=== PATIENT | female | born 1950 | race Caucasian/White ===

== ENCOUNTER 2023-09-01 12:28 | Inpatient (IN) | payer OTHER ==
[~2023-09-01] VITALS: Ht 157.5 cm; Wt 73.9 kg
[2023-09-01 12:41] VITALS: BP_SYST 143; PULSE 87; RESP 20; TEMP 98.1; O2SAT 95
[2023-09-01 13:19] LABS: BASOPHILS % (AUTO) 0.3 % (0.0-2.0); EOSINOPHILS % (AUTO) 0.4 % (0.0-4.0); HEMATOCRIT 32.8 % (36-48); HEMOGLOBIN 11.1 g/dL (12.0-16.0); LYMPHOCYTES # (AUTO) 0.4 K/uL (1.0-5.5); LYMPHOCYTES % (AUTO) 4.5 % (20.5-51.5); MEAN CORPUSCULAR HEMOGLOBIN 28 pg (27-31); MEAN CORPUSCULAR HGB CONC 34 % (32-36); MEAN CORPUSCULAR VOLUME 83 fL (79.0-98.0); MONOCYTES # (AUTO) 0.5 K/uL (0.0-1.0); MONOCYTES % (AUTO) 5.3 % (1.7-9.3); NEUTROPHILS # (AUTO) 8.5 K/uL (1.8-7.7); NEUTROPHILS % (AUTO) 89.5 % (40.0-70.0); PLATELET COUNT (AUTO) 145 K/uL (130-430); RED BLOOD CELL COUNT(AUTO) 3.94 MIL/uL (4.2-6.2); WHITE BLOOD COUNT (AUTO) 9.5 K/uL (4.8-10.8)
[2023-09-01 13:45] LABS: ANION GAP 12 (5-15); CALCIUM 9.1 mg/dL (8.4-11.0); CARBON DIOXIDE 24 mmol/L (23-29); CHLORIDE 100 mmol/L (98-107); CREATININE 1.16 mg/dL (0.55-1.30); GLUCOSE 167 mg/dL (74-106); POTASSIUM 3.8 mmol/L (3.5-5.1); SODIUM SERUM 136 mmol/L (136-145); UREA NITROGEN, BLOOD 23 mg/dL (8-21)
[2023-09-01 13:48] LABS: PROTHROMBIN TIME 10.1 SECS (9.5-12.5)
[2023-09-01 13:53] LABS: BILIRUBIN,URINE 1+ (NEGATIVE); BLOOD, URINE 3+ (NEGATIVE); CLARITY/URINE SL CLOUDY (CLEAR); COLOR,URINE YELLOW (YELLOW); GLUCOSE,URINE NEGATIVE (NEGATIVE); KETONES,URINE TRACE (NEGATIVE); LEUKOCYTE ESTERASE ,URINE 2+ (NEGATIVE); NITRITE, URINE NEGATIVE (NEGATIVE); PROTEIN URINE 2+ (NEGATIVE); UROBILINOGEN,URINE 0.2 (0.2-1.0)
[2023-09-01 14:11] LABS: BACTERIA,URINE FEW /HPF (None Seen); MUCUS,URINE 1+ /LPF (None Seen); RBC,URINE 20-50 /HPF (0-3); WBC,URINE 20-50 /HPF (0-3)
[2023-09-01 14:18] LABS: ALANINE AMINOTRANSFERASE 18 U/L (12-78); ALBUMIN 2.9 g/dL (3.4-4.8); AMYLASE 26 U/L (0-100); ASPARTATE AMINOTRANSFERASE 15 U/L (10-37); BILIRUBIN,DIRECT 0.2 mg/dL (0.0-0.3); LIPASE 29 U/L (16-77); TOTAL BILIRUBIN 0.5 mg/dL (0.0-1.0); TOTAL PROTEIN, SERUM 7.3 g/dL (6.4-8.3)
[2023-09-01] MEDS ORDERED: KETOROLAC TROMETHAMINE 30 MG VIAL IVP ONE (15:00)
[2023-09-01] MEDS ORDERED: NACL 0.9% 1,000 ML IV ONE (15:00)
[2023-09-01] MEDS ORDERED: LOSA50TA28 PO (15:29)
[2023-09-01] MEDS ORDERED: VENL150C53 PO (15:29)
[2023-09-01] MEDS ORDERED: METF1000 PO (15:29)
[2023-09-01] MEDS ORDERED: FENO200C25 PO (15:29)
[2023-09-01] MEDS ORDERED: LEVO150T PO (15:29)
[2023-09-01] MEDS ORDERED: cefTRIAXone 1 GM in D5W 50 ML IV ONE (15:30)
[2023-09-01] MEDS ORDERED: INSULIN REGULAR, HUMAN 100 UNITS/ML, 3 ML VIAL (humuLIN R) SUBCUT PRN (15:30)
[2023-09-01] MEDS ORDERED: cefTRIAXone 1 GM VIAL ONE (15:47)
[2023-09-01] MEDS ORDERED: 0.45% NACL 1,000 ML IV SCH (16:00)
[2023-09-01] MEDS ORDERED: ACETAMINOPHEN 325 MG TABLET PO PRN ×2 (17:30→17:45)
[2023-09-01] MEDS ORDERED: MORPHINE 4 MG INJ. 4 MG/ML VIAL IVP PRN (17:30)
[2023-09-01] MEDS ORDERED: NALOXONE HCL 0.4 MG/ML AMP (NARCAN) IVP PRN ×2 (17:30)
[2023-09-01] MEDS ORDERED: ONDANSETRON HCL 4 MG/2 ML VIAL IVP PRN (17:30)
[2023-09-01] MEDS: metFORMIN HCL 500 MG TABLET PO SCH (18:00)
[2023-09-01] MEDS ORDERED: LOSARTAN POTASSIUM 50 MG TABLET (COZAAR) PO ONE (18:00)
[2023-09-01] MEDS: NACL 0.9% 1,000 ML IV SCH (18:59)
[2023-09-01 19:00] VITALS: BP_SYST 120; PULSE 75; RESP 18; TEMP 99.1; O2SAT 96
[2023-09-01 21:35] VITALS: O2SAT 96
[2023-09-01 21:50] VITALS: BP_SYST 124; PULSE 76; RESP 18; TEMP 97.3
[2023-09-01] MEDS: HYDROcodone/ACETAMIN 5-325 MG TAB (NORCO/ VICODIN) PO PRN (21:54)
[2023-09-02 00:20] VITALS: BP_SYST 138; PULSE 70; RESP 16; TEMP 97.2; O2SAT 97
[2023-09-02] MEDS: NACL 0.9% 1,000 ML IV SCH ×3 (04:00→18:45)
[2023-09-02 04:54] LABS: BASOPHILS % (AUTO) 0.4 % (0.0-2.0); EOSINOPHILS # (AUTO) 0.1 K/uL (0.0-0.4); EOSINOPHILS % (AUTO) 1.1 % (0.0-4.0); HEMATOCRIT 29.6 % (36-48); HEMOGLOBIN 9.9 g/dL (12.0-16.0); LYMPHOCYTES # (AUTO) 0.6 K/uL (1.0-5.5); LYMPHOCYTES % (AUTO) 6.8 % (20.5-51.5); MEAN CORPUSCULAR HEMOGLOBIN 28 pg (27-31); MEAN CORPUSCULAR HGB CONC 33 % (32-36); MEAN CORPUSCULAR VOLUME 84 fL (79.0-98.0); MONOCYTES # (AUTO) 0.7 K/uL (0.0-1.0); MONOCYTES % (AUTO) 8.1 % (1.7-9.3); NEUTROPHILS # (AUTO) 7.8 K/uL (1.8-7.7); NEUTROPHILS % (AUTO) 83.6 % (40.0-70.0); PLATELET COUNT (AUTO) 133 K/uL (130-430); RED BLOOD CELL COUNT(AUTO) 3.53 MIL/uL (4.2-6.2); WHITE BLOOD COUNT (AUTO) 9.3 K/uL (4.8-10.8)
[2023-09-02 05:21] LABS: ALANINE AMINOTRANSFERASE 11 U/L (12-78); ALBUMIN 2.3 g/dL (3.4-4.8); ANION GAP 13 (5-15); ASPARTATE AMINOTRANSFERASE 13 U/L (10-37); CALCIUM 8.2 mg/dL (8.4-11.0); CARBON DIOXIDE 21 mmol/L (23-29); CHLORIDE 105 mmol/L (98-107); CREATININE 1.14 mg/dL (0.55-1.30); GLUCOSE 154 mg/dL (74-106); POTASSIUM 3.4 mmol/L (3.5-5.1); SODIUM SERUM 139 mmol/L (136-145); TOTAL BILIRUBIN 0.3 mg/dL (0.0-1.0); TOTAL PROTEIN, SERUM 6.3 g/dL (6.4-8.3); UREA NITROGEN, BLOOD 23 mg/dL (8-21)
[2023-09-02 07:42] VITALS: BP_SYST 128; PULSE 73; RESP 16; TEMP 97.4; O2SAT 92
[2023-09-02] MEDS: metFORMIN HCL 500 MG TABLET PO SCH ×2 (08:00→18:00)
[2023-09-02] MEDS: Effexor XR 37.5 MG PO SCH (09:00)
[2023-09-02] MEDS: FENOFIBRATE 160 MG TABLET PO SCH (09:00)
[2023-09-02] MEDS: LOSARTAN POTASSIUM 50 MG TABLET (COZAAR) PO SCH (09:00)
[2023-09-02] MEDS: HYDROcodone/ACETAMIN 5-325 MG TAB (NORCO/ VICODIN) PO PRN (09:01)
[2023-09-02] MEDS: HYDROcodone/ACETAMIN 10-325 MG TAB PO PRN ×3 (13:28→23:16)
[2023-09-02 17:05] VITALS: BP_SYST 124; PULSE 69; RESP 16; TEMP 96.9; O2SAT 92
[2023-09-02] MEDS: cefTRIAXone 1 GM in D5W 50 ML IV SCH (18:47)
[2023-09-03] MEDS: HYDROcodone/ACETAMIN 10-325 MG TAB PO PRN (04:22)
[2023-09-03 05:44] LABS: BASOPHILS # (AUTO) 0.1 K/uL (0.0-0.2); BASOPHILS % (AUTO) 0.6 % (0.0-2.0); EOSINOPHILS # (AUTO) 0.2 K/uL (0.0-0.4); EOSINOPHILS % (AUTO) 1.9 % (0.0-4.0); HEMATOCRIT 29.1 % (36-48); HEMOGLOBIN 9.6 g/dL (12.0-16.0); LYMPHOCYTES # (AUTO) 0.8 K/uL (1.0-5.5); LYMPHOCYTES % (AUTO) 9.2 % (20.5-51.5); MEAN CORPUSCULAR HEMOGLOBIN 28 pg (27-31); MEAN CORPUSCULAR HGB CONC 33 % (32-36); MEAN CORPUSCULAR VOLUME 84 fL (79.0-98.0); MONOCYTES # (AUTO) 0.7 K/uL (0.0-1.0); MONOCYTES % (AUTO) 8.6 % (1.7-9.3); NEUTROPHILS # (AUTO) 6.9 K/uL (1.8-7.7); NEUTROPHILS % (AUTO) 79.7 % (40.0-70.0); PLATELET COUNT (AUTO) 148 K/uL (130-430); RED BLOOD CELL COUNT(AUTO) 3.47 MIL/uL (4.2-6.2); RED CELL DISTRIBUTION WIDTH 14.9 % (9.0-15.0); WHITE BLOOD COUNT (AUTO) 8.7 K/uL (4.8-10.8)
[2023-09-03 05:54] LABS: ALANINE AMINOTRANSFERASE 20 U/L (12-78); ALBUMIN 2.2 g/dL (3.4-4.8); ANION GAP 13 (5-15); ASPARTATE AMINOTRANSFERASE 20 U/L (10-37); CALCIUM 8.1 mg/dL (8.4-11.0); CARBON DIOXIDE 20 mmol/L (23-29); CHLORIDE 104 mmol/L (98-107); CREATININE 0.89 mg/dL (0.55-1.30); GLUCOSE 116 mg/dL (74-106); POTASSIUM 3.2 mmol/L (3.5-5.1); SODIUM SERUM 137 mmol/L (136-145); TOTAL BILIRUBIN 0.2 mg/dL (0.0-1.0); TOTAL PROTEIN, SERUM 6.3 g/dL (6.4-8.3); UREA NITROGEN, BLOOD 17 mg/dL (8-21)
[2023-09-03 08:41] VITALS: BP_SYST 118; PULSE 79; RESP 16; TEMP 97; O2SAT 93
[2023-09-03] MEDS: FENOFIBRATE 160 MG TABLET PO SCH (09:00)
[2023-09-03] MEDS: LOSARTAN POTASSIUM 50 MG TABLET (COZAAR) PO SCH (09:32)
[2023-09-03] MEDS: metFORMIN HCL 500 MG TABLET PO SCH ×2 (09:32→20:53)
[2023-09-03] MEDS: Effexor XR 37.5 MG PO SCH (09:32)
[2023-09-03] MEDS: NACL 0.9% 1,000 ML IV SCH ×2 (09:45→20:55)
[2023-09-03] MEDS ORDERED: POTASSIUM CHLORIDE 20 MEQ TABLET.ER PO ONE (10:00)
[2023-09-03] MEDS ORDERED: NALOXONE HCL 0.4 MG/ML AMP (NARCAN) IVP PRN (10:00)
[2023-09-03 12:00] VITALS: BP_SYST 131; PULSE 76; RESP 18; TEMP 98.2; O2SAT 96
[2023-09-03] MEDS ORDERED: FUROSEMIDE 20 MG/2 ML VIAL ONE (12:52)
[2023-09-03] MEDS ORDERED: FUROSEMIDE 20 MG/2 ML VIAL IVP ONE (13:00)
[2023-09-03] MEDS: MORPHINE 2 MG/ML INJ. SYRINGE IVP PRN ×2 (13:49→20:18)
[2023-09-03 16:00] VITALS: BP_SYST 128; PULSE 84; RESP 18; TEMP 97.9; O2SAT 98
[2023-09-03 20:00] VITALS: BP_SYST 134; PULSE 76; RESP 21; TEMP 99.2; O2SAT 94
[2023-09-03] MEDS: cefTRIAXone 1 GM in D5W 50 ML IV SCH (20:46)
[2023-09-03 22:58] VITALS: O2SAT 94
[2023-09-04] VITALS (7 sets, daily range): BP systolic 134–147; PULSE 75–78; RESP 15–21; TEMP 96–99.2; O2SAT 94–96
[2023-09-04] MEDS: MORPHINE 2 MG/ML INJ. SYRINGE IVP PRN ×4 (03:08→23:26)
[2023-09-04] MEDS: NACL 0.9% 1,000 ML IV SCH ×2 (05:59→18:29)
[2023-09-04 07:26] LABS: BASOPHILS # (AUTO) 0.1 K/uL (0.0-0.2); BASOPHILS % (AUTO) 0.5 % (0.0-2.0); EOSINOPHILS # (AUTO) 0.1 K/uL (0.0-0.4); EOSINOPHILS % (AUTO) 0.9 % (0.0-4.0); HEMATOCRIT 29.5 % (36-48); HEMOGLOBIN 9.8 g/dL (12.0-16.0); LYMPHOCYTES # (AUTO) 0.9 K/uL (1.0-5.5); LYMPHOCYTES % (AUTO) 7.6 % (20.5-51.5); MEAN CORPUSCULAR HEMOGLOBIN 28 pg (27-31); MEAN CORPUSCULAR HGB CONC 33 % (32-36); MEAN CORPUSCULAR VOLUME 83 fL (79.0-98.0); MONOCYTES # (AUTO) 0.9 K/uL (0.0-1.0); MONOCYTES % (AUTO) 8.1 % (1.7-9.3); NEUTROPHILS # (AUTO) 9.6 K/uL (1.8-7.7); NEUTROPHILS % (AUTO) 82.9 % (40.0-70.0); PLATELET COUNT (AUTO) 196 K/uL (130-430); RED BLOOD CELL COUNT(AUTO) 3.56 MIL/uL (4.2-6.2); RED CELL DISTRIBUTION WIDTH 14.8 % (9.0-15.0); WHITE BLOOD COUNT (AUTO) 11.6 K/uL (4.8-10.8)
[2023-09-04 07:47] LABS: ALANINE AMINOTRANSFERASE 16 U/L (12-78); ALBUMIN 2.1 g/dL (3.4-4.8); ANION GAP 15 (5-15); ASPARTATE AMINOTRANSFERASE 19 U/L (10-37); CALCIUM 8.4 mg/dL (8.4-11.0); CARBON DIOXIDE 19 mmol/L (23-29); CHLORIDE 105 mmol/L (98-107); CREATININE 0.86 mg/dL (0.55-1.30); GLUCOSE 106 mg/dL (74-106); POTASSIUM 3.5 mmol/L (3.5-5.1); SODIUM SERUM 139 mmol/L (136-145); TOTAL BILIRUBIN 0.3 mg/dL (0.0-1.0); TOTAL PROTEIN, SERUM 6.4 g/dL (6.4-8.3); UREA NITROGEN, BLOOD 13 mg/dL (8-21)
[2023-09-04] MEDS: metFORMIN HCL 500 MG TABLET PO SCH ×2 (08:00→18:27)
[2023-09-04] MEDS: FENOFIBRATE 160 MG TABLET PO SCH (09:00)
[2023-09-04] MEDS: LOSARTAN POTASSIUM 50 MG TABLET (COZAAR) PO SCH (09:33)
[2023-09-04] MEDS: Effexor XR 37.5 MG PO SCH ×2 (09:33→09:39)
[2023-09-04] MEDS ORDERED: HYDROcodone/ACETAMIN 5-325 MG TAB (NORCO/ VICODIN) PO PRN (17:15)
[2023-09-04] MEDS: HYDROcodone/ACETAMIN 7.5-325 MG TAB PO PRN (18:22)
[2023-09-04] MEDS: cefTRIAXone 2 GM in D5W 50 ML IV SCH (18:27)
[2023-09-05] VITALS (7 sets, daily range): BP systolic 128–139; PULSE 72–79; RESP 18–22; TEMP 96.2–97.9; O2SAT 93–97
[2023-09-05] MEDS: NACL 0.9% 1,000 ML IV SCH ×2 (01:45→18:32)
[2023-09-05] MEDS: HYDROcodone/ACETAMIN 7.5-325 MG TAB PO PRN ×4 (01:49→18:33)
[2023-09-05] MEDS: metFORMIN HCL 500 MG TABLET PO SCH ×2 (10:29→18:31)
[2023-09-05] MEDS: FENOFIBRATE 160 MG TABLET PO SCH (10:30)
[2023-09-05] MEDS: LOSARTAN POTASSIUM 50 MG TABLET (COZAAR) PO SCH (10:30)
[2023-09-05] MEDS: cefTRIAXone 2 GM in D5W 50 ML IV SCH (18:31)
[2023-09-06] MEDS: HYDROcodone/ACETAMIN 7.5-325 MG TAB PO PRN ×4 (01:01→22:12)
[2023-09-06 08:00] VITALS: BP_SYST 151; PULSE 72; RESP 18; TEMP 97; O2SAT 95
[2023-09-06 08:13] VITALS: O2SAT 95
[2023-09-06 08:21] LABS: BASOPHILS # (AUTO) 0.1 K/uL (0.0-0.2); BASOPHILS % (AUTO) 0.8 % (0.0-2.0); EOSINOPHILS # (AUTO) 0.1 K/uL (0.0-0.4); EOSINOPHILS % (AUTO) 1.2 % (0.0-4.0); HEMATOCRIT 31.4 % (36-48); HEMOGLOBIN 10.4 g/dL (12.0-16.0); LYMPHOCYTES % (AUTO) 8.3 % (20.5-51.5); MEAN CORPUSCULAR HEMOGLOBIN 27 pg (27-31); MEAN CORPUSCULAR HGB CONC 33 % (32-36); MEAN CORPUSCULAR VOLUME 83 fL (79.0-98.0); MONOCYTES # (AUTO) 0.6 K/uL (0.0-1.0); MONOCYTES % (AUTO) 5.1 % (1.7-9.3); NEUTROPHILS # (AUTO) 9.9 K/uL (1.8-7.7); NEUTROPHILS % (AUTO) 84.6 % (40.0-70.0); PLATELET COUNT (AUTO) 306 K/uL (130-430); RED CELL DISTRIBUTION WIDTH 14.9 % (9.0-15.0); WHITE BLOOD COUNT (AUTO) 11.7 K/uL (4.8-10.8)
[2023-09-06 08:47] LABS: ANION GAP 13 (5-15); ASPARTATE AMINOTRANSFERASE 14 U/L (10-37); CARBON DIOXIDE 22 mmol/L (23-29); CHLORIDE 104 mmol/L (98-107); CREATININE 0.75 mg/dL (0.55-1.30); GLUCOSE 87 mg/dL (74-106); POTASSIUM 3.6 mmol/L (3.5-5.1); SODIUM SERUM 139 mmol/L (136-145); TOTAL BILIRUBIN 0.2 mg/dL (0.0-1.0); UREA NITROGEN, BLOOD 9 mg/dL (8-21)
[2023-09-06 08:48] LABS: ALANINE AMINOTRANSFERASE 16 U/L (12-78); ALBUMIN 2.3 g/dL (3.4-4.8); TOTAL PROTEIN, SERUM 6.6 g/dL (6.4-8.3)
[2023-09-06] MEDS: FENOFIBRATE 160 MG TABLET PO SCH (09:40)
[2023-09-06] MEDS: LOSARTAN POTASSIUM 50 MG TABLET (COZAAR) PO SCH (09:41)
[2023-09-06] MEDS: metFORMIN HCL 500 MG TABLET PO SCH ×2 (09:41→17:25)
[2023-09-06] MEDS: Effexor XR 37.5 MG PO SCH (09:43)
[2023-09-06 12:00] VITALS: BP_SYST 144; PULSE 79; RESP 17; TEMP 98.1; O2SAT 95
[2023-09-06 16:00] VITALS: BP_SYST 139; PULSE 75; RESP 18; TEMP 98.2; O2SAT 96
[2023-09-06] MEDS: NACL 0.9% 1,000 ML IV SCH (17:27)
[2023-09-06] MEDS: cefTRIAXone 2 GM in D5W 50 ML IV SCH (17:42)
[2023-09-06 20:00] VITALS: BP_SYST 146; PULSE 71; RESP 18; TEMP 97.8; O2SAT 96
[2023-09-07] VITALS: BP_SYST 152; PULSE 68; RESP 18; TEMP 97.9; O2SAT 96
[2023-09-07 06:20] LABS: BASOPHILS # (AUTO) 0.1 K/uL (0.0-0.2); BASOPHILS % (AUTO) 0.8 % (0.0-2.0); EOSINOPHILS # (AUTO) 0.1 K/uL (0.0-0.4); HEMATOCRIT 31.6 % (36-48); HEMOGLOBIN 10.7 g/dL (12.0-16.0); LYMPHOCYTES # (AUTO) 1.2 K/uL (1.0-5.5); LYMPHOCYTES % (AUTO) 9.3 % (20.5-51.5); MEAN CORPUSCULAR HEMOGLOBIN 28 pg (27-31); MEAN CORPUSCULAR HGB CONC 34 % (32-36); MEAN CORPUSCULAR VOLUME 82 fL (79.0-98.0); MONOCYTES # (AUTO) 0.7 K/uL (0.0-1.0); MONOCYTES % (AUTO) 5.2 % (1.7-9.3); NEUTROPHILS # (AUTO) 10.6 K/uL (1.8-7.7); NEUTROPHILS % (AUTO) 83.7 % (40.0-70.0); PLATELET COUNT (AUTO) 360 K/uL (130-430); RED BLOOD CELL COUNT(AUTO) 3.87 MIL/uL (4.2-6.2); WHITE BLOOD COUNT (AUTO) 12.6 K/uL (4.8-10.8)
[2023-09-07 06:56] LABS: ALANINE AMINOTRANSFERASE 15 U/L (12-78); ALBUMIN 2.3 g/dL (3.4-4.8); ANION GAP 12 (5-15); ASPARTATE AMINOTRANSFERASE 20 U/L (10-37); CALCIUM 8.3 mg/dL (8.4-11.0); CARBON DIOXIDE 22 mmol/L (23-29); CHLORIDE 103 mmol/L (98-107); CREATININE 0.67 mg/dL (0.55-1.30); GLUCOSE 96 mg/dL (74-106); POTASSIUM 3.3 mmol/L (3.5-5.1); SODIUM SERUM 137 mmol/L (136-145); TOTAL BILIRUBIN 0.3 mg/dL (0.0-1.0); TOTAL PROTEIN, SERUM 6.8 g/dL (6.4-8.3); UREA NITROGEN, BLOOD 8 mg/dL (8-21)
[2023-09-07 08:15] VITALS: O2SAT 96
[2023-09-07 08:37] VITALS: BP_SYST 137; PULSE 73; RESP 15; TEMP 98.2; O2SAT 96
[2023-09-07] MEDS: metFORMIN HCL 500 MG TABLET PO SCH ×2 (09:51→17:58)
[2023-09-07] MEDS: HYDROcodone/ACETAMIN 7.5-325 MG TAB PO PRN ×2 (09:52→17:58)
[2023-09-07] MEDS: FENOFIBRATE 160 MG TABLET PO SCH (09:52)
[2023-09-07] MEDS: LOSARTAN POTASSIUM 50 MG TABLET (COZAAR) PO SCH (09:52)
[2023-09-07] MEDS: Effexor XR 37.5 MG PO SCH (09:53)
[2023-09-07] MEDS: NACL 0.9% 1,000 ML IV SCH ×2 (09:57→10:09)
[2023-09-07 11:53] VITALS: BP_SYST 151; PULSE 77; RESP 17; TEMP 97.6; O2SAT 95
[2023-09-07] MEDS ORDERED: POTASSIUM CHLORIDE 20 MEQ TABLET.ER PO ONE (13:15)
[2023-09-07] MEDS ORDERED: HYDR-3917 PO (13:58)
[2023-09-07] MEDS: cefTRIAXone 2 GM in D5W 50 ML IV SCH (16:26)
[2023-09-07 16:41] VITALS: BP_SYST 152; PULSE 77; RESP 17; TEMP 98; O2SAT 95
[2023-09-07 17:30] VITALS: BP_SYST 152; PULSE 77; RESP 17; TEMP 98; O2SAT 95
== END 2023-09-07 18:00 | disposition home or self-care (01) | DRG 872 ==
LOC: SED 12:28 → SMU 15:28
PROVIDERS: ADMIT Family Medicine; ATTEND Family Medicine
PROC: 05HY33Z Insertion of Infusion Device into Upper Vein, Percutaneous Approach (ICD-10-PCS; principal; 2023-09-05)
PROC: B54NZZA Ultrasonography of Left Upper Extremity Veins, Guidance (ICD-10-PCS; 2023-09-05)
DX: A41.9 Sepsis, unspecified organism (principal); N12 Tubulo-interstitial nephritis, not specified as acute or chronic; Z79.899 Other long term (current) drug therapy; D64.9 Anemia, unspecified; N83.202 Unspecified ovarian cyst, left side; N28.1 Cyst of kidney, acquired; E27.9 Disorder of adrenal gland, unspecified; K57.30 Diverticulosis of large intestine without perforation or abscess without bleeding; B96.20 Unspecified Escherichia coli [E. coli] as the cause of diseases classified elsewhere
CPT/HCPCS: 36415; 71045; 72131; 76376; 76770; 78707; 80048; 80053; 80076; 81000; 81001; 81015; 82150; 82962; 83037; 83605; 83690; 85025; 85610-TC; 85730-TC; 87040; 87086; 96365; 96375; 97110-GP; 97116-GP; 97530-GP; 99285; A9562; J0696; J1815; J1885; J1940; J2270; J7060